=== PATIENT | female | born 1930 | race Caucasian/White ===

== ENCOUNTER → 2017-10-11 | Outpatient (CLI) | payer OTHER ==
[~2017-10-11] MED LIST: ADULT LOW DOSE81 MG PO; ALBUTEROL INHAL17 GM INH; ALBUTEROL2.5 MG/31 INH; ATIVAN0.5 MG PO; AVELOX 400 MG400 MG PO; BROVANA15 MCG/2 M; BUDESONIDE0.5 MG/2 M INH; DIGOXIN250 MCG PO; ELIQUIS2.5 MG PO; FELDENE20 MG PO; MSL20MG/ML SUBLING; MULTIVITAMINS PO; PREDNISONE 10 M10 MG PO; PREDNISONE 5 MG5 MG; PRILOSEC40 MG PO; SPIRIVA INH; VIOS AEROSOL D1 EACH; VITAMIN D400 UNI1 PO
== END ==
LOC: RAD 14:57
DX: J44.1 Chronic obstructive pulmonary disease with (acute) exacerbation (principal); M47.895 Other spondylosis, thoracolumbar region; M41.85 Other forms of scoliosis, thoracolumbar region; I70.0 Atherosclerosis of aorta; J98.11 Atelectasis

== ENCOUNTER → 2017-10-24 | Outpatient (CLI) | payer OTHER | LOC: RAD 15:21 | DX: R06.00 Dyspnea, unspecified (principal) ==

== ENCOUNTER 2018-02-07 13:53 | Inpatient (IN) | payer OTHER ==
[~2018-02-07] VITALS: Ht 149.9 cm; Wt 44.9 kg
--- NOTE | ~2018-02-07 | 2DMMODE ---
[facility] [address] [place] [address] 2 D/M-MODE ECHOCARDIOGRAM Name: SHARPSHELLY RENETTA Room #: 364-P [facility] IN .R.#: [id number] Admission: 02/07/18 Attend Phys: Khari Weber MD Discharge: Date of : [birth year] Date of Service: 02/11/18 1209 Report #: [id number] THIS REPORT FOR: //name// APPROVED REPORT Study performed: 02/11/2018 10:31:34 EXAM: Comprehensive 2D, Doppler, and color-flow Echocardiogram Patient Location: Bedside Room #: 364 Status: routine BSA: 1.37 HR: 104 bpm BP: 127/99 mmHg Rhythm: Tachy and irregular Other Information Study Quality: Good/patient sitting up in bed on BipAP. Indications Short of breath. Tachycardia. COPD exacerbation. 2D Dimensions RVDd: 34.12 mm LVEF(%): 34.90 (>50%) IVSd: 10.55 (7-11mm) LVOT Diam: 20.15 (18-24mm) LVDd: 46.32 mm PWd: 10.27 (7-11mm) LVDs: 38.62 (25-40mm) Aortic Root: 31.34 mm Zurita's LVEF: 34.90 % Volumes Left Atrial Volume (Systole) Single Plane 4CH: 74.22 mL Single Plane 2CH: 72.22 mL LA ESV Index: 58.00 mL/m2 Aortic Valve AoV Peak Omega.: 2.41 m/s AO Peak Gr.: 23.43 mmHg LVOT Max P.78 mmHg AO Mean Gr.: 13.45 mmHg AO V2 Mean: 1.74 m/s LVOT Max V: 0.66 m/s AO V2 VTI: 41.70 cm DARIO Vmax: 0.[address] [facility] [address] [place] [address] 2 D/M-MODE ECHOCARDIOGRAM Name: SHELLY SHARP [facility] Room #: 364-P [facility] IN ..#: [id number] Admission: 02/07/18 Attend Phys: Khari Weber MD Discharge: Date of : [birth year] Date of Service: 02/11/18 1209 Report #: [id number] Mitral Valve MV Decel. Time: 128.82 ms MV E Max Omega.: 1.79 m/s MV PHT: 36.48 ms MVA (PHT): 6.03 cm2 Pulmonary Valve PV Peak Omega.: 0.49 m/s PV Peak Gr.: 0.97 mmHg Tricuspid Valve TR Peak Omega.: 3.58 m/s RAP Estimate: 15.00 mmHg TR Peak Gr.: 51.24 mmHg PA Pressure: 66.00 mmHg Left Ventricle The left ventricle is normal size. There is normal left ventricular wall thickness. Left ventricular systolic function is severely decreased. LVEF is 25-30%. This study is not technically sufficient to allow evaluation of the LV diastolic function. Right Ventricle The right ventricle is normal size. Right ventricle is mildly hypokinetic. Atria Left atrium is severely dilated. The right atrium size is normal. Aortic Valve Aortic valve leaflets are heavily thickened and calcified. Mild to moderate aortic regurgitation. Moderate to severe aortic stenosis. Aortic valve area by continuity equation is 0.9cm2 Mitral Valve Mitral valve leaflets are moderately thickened. Moderate to severe mitral annular calcification. Severe mitral regurgitation. Mild mitral stenosis. Tricuspid Valve The tricuspid valve is normal in structure. Moderate tricuspid regurgitation. Estimated PAP is 65-70mmHg. Pulmonic Valve The pulmonary valve is normal in structure. Trace pulmonic regurgitation. [facility] [address] [place] [address] 2 D/M-MODE ECHOCARDIOGRAM Name: SHARPSHELLY Room #: 364-P [facility] IN .R.#: [id number] Admission: 02/07/18 Attend Phys: Khari Weber MD Discharge: Date of : [birth year] Date of Service: 02/11/18 1209 Report #: [id number] Great Vessels The aortic root is normal in size. The ascending aorta is normal in size. IVC is dilated and collapses <50% with inspiration. Pericardium There is no pericardial effusion. Small right pleural effusion noted. <Conclusion> The left ventricle is normal size. LVEF is 25-30%. Left ventricular systolic function is severely decreased. The right ventricle is normal size. Left atrium is severely dilated. Aortic valve leaflets are heavily thickened and calcified. Mild to moderate aortic regurgitation. Moderate to severe aortic stenosis. Aortic valve area by continuity equation is 0.9cm2 Mitral valve leaflets are moderately thickened. Moderate to severe mitral annular calcification. Severe mitral regurgitation. Mild mitral stenosis. The tricuspid valve is normal in structure. Moderate tricuspid regurgitation. Estimated PAP is 65-70mmHg. The pulmonary valve is normal in structure. Trace pulmonic regurgitation. There is no pericardial effusion. Small right pleural effusion noted. <ELECTRONICALLY SIGNED> By: Maurice Alarcon MD 02/11/18 1209 08 08 Maurice Alarcon MD /INF
--- NOTE | ~2018-02-07 | EKG ---
[address] [place] [address] ELECTROCARDIOGRAM REPORT Name: SHELLY SHARP Room #: 364-P ADM IN M.R.#: [id number] Admission: 02/07/18 Attend Phys: Khari Weber MD Discharge: Date of : [birth year] Report #: [id number] THIS REPORT FOR: //name// [facility] Test Date: 2018-02-11 Test Time: 09:25:41 Pat Name: SHELLY SHARP Department: Room: 364 P Gender: F [employer]: Shefali SANDS : 1930 Requested By: Ra Oro Order Number: [id number] MD: Stevenson Cortez Measurements Intervals [place] Rate: 111 P: PA: QRS: 58 QRSD: 86 T: 225 QT: 326 QTc: 443 Interpretive Statements Atrial fibrillation LVH with secondary repolarization abnormality Compared to ECG 06/19/2010 22:10:16 Atrial fibrillation has replaced sinus rhythm ST and T wave abnormality is now present Electronically Signed On 02-11-2018 16:25:11 CDT by Stevenson Cortez [email or web address] <ELECTRONICALLY SIGNED> By: Stevenson Cortez MD, [facility] 02/11/18 1625 0925 0925 Stevenson Cortez MD, [facility] /EPI
[~2018-02-07 13:53] MED LIST changes: -ATIVAN0.5 MG PO; -DIGOXIN250 MCG PO; -ELIQUIS2.5 MG PO; -MSL20MG/ML SUBLING; -PREDNISONE 10 M10 MG PO
[2018-02-07 14:35] VITALS: BP 174/90
[2018-02-07 17:53] LABS: BE(vivo) -1.7 mmol/L (-2 to +3); HCO3 22.2 mmol/L (22.0-26.0); PCO2 34.7 mmHg (35.0-45.0); PO2 102.8 mmHg (80.0-100.0); pH 7.423 (7.360-7.450); sO2 97.9 % (92.0-98.0)
[2018-02-07 20:20] VITALS: BP 184/85
[2018-02-07 23:50] VITALS: BP 159/57
[2018-02-08 00:25] LABS: URINE BILIRUBIN NEGATIVE (Negative); URINE BLOOD NEGATIVE (Negative); URINE CLARITY CLEAR; URINE COLOR YELLOW; URINE GLUCOSE-RANDOM* NEGATIVE (Negative); URINE KETONES NEGATIVE (Negative); URINE LEUKOCYTES-REFLEX NEGATIVE (Negative); URINE NITRITE-REFLEX NEGATIVE (Negative); URINE PROTEIN (DIPSTICK) NEGATIVE (Negative); URINE SPECIFIC GRAVITY <= 1.005 (1.005-1.035); URINE UROBILINOGEN 0.2 E.U./dl (0.2-1.0)
[2018-02-08 00:32] LABS: ABSOLUTE NEUTROPHILS 6.4 thou/uL (1.4-8.2); BASOPHILS 0.2 % (0.0-2.0); HEMATOCRIT 35.7 % (37.0-47.0); LYMPHOCYTES 6.3 % (24.0-44.0); MCHC 33.6 g/dL (28.0-37.0); MCV 92.2 fL (80.0-100.0); MONOCYTES 0.9 % (1.0-8.0); PLATELET COUNT 259 thou/uL (150-400); POLYS 92.6 % (36.0-66.0); RBC 3.87 mil/uL (4.20-5.00); RDW 13.6 % (10.5-14.5); WBC 6.9 thou/uL (4.0-11.0)
[2018-02-08 00:46] LABS: CALCIUM 9.1 mg/dL (8.5-10.1); CREATININE 0.9 mg/dL (0.6-1.0); POTASSIUM 4.6 mmol/L (3.5-5.1)
[2018-02-08 00:53] LABS: ALBUMIN 3.4 g/dL (3.4-5.0); TOTAL BILIRUBIN 0.5 mg/dL (<0.1-1.0); TOTAL PROTEIN 6.6 g/dL (6.4-8.2)
[2018-02-08 03:30] VITALS: BP 163/85
[2018-02-08 05:23] LABS: HEMATOCRIT 34.2 % (37.0-47.0); HEMOGLOBIN 11.5 gm/dL (12.0-15.0); MCHC 33.6 g/dL (28.0-37.0); MCV 92.4 fL (80.0-100.0); RBC 3.71 mil/uL (4.20-5.00); RDW 13.5 % (10.5-14.5); WBC 3.6 thou/uL (4.0-11.0)
[2018-02-08 05:37] LABS: CALCIUM 8.9 mg/dL (8.5-10.1); CREATININE 0.8 mg/dL (0.6-1.0); POTASSIUM 4.7 mmol/L (3.5-5.1)
[2018-02-08 07:58] VITALS: BP 155/89
[2018-02-08 11:44] VITALS: BP 154/81
[2018-02-08 16:37] VITALS: BP 164/124
[2018-02-08 17:10] LABS: GLYCOHEMOGLOBIN (HGB A1C) 5.1 % (4.8-5.6)
[2018-02-08 19:48] VITALS: BP 143/80
[2018-02-09 04:15] VITALS: BP 127/81
[2018-02-09 05:09] LABS: ABSOLUTE NEUTROPHILS 7.8 thou/uL (1.4-8.2); HEMATOCRIT 31.1 % (37.0-47.0); HEMOGLOBIN 10.7 gm/dL (12.0-15.0); LYMPHOCYTES 6.3 % (24.0-44.0); MCH 31.5 pg (26.0-34.0); MCHC 34.2 g/dL (28.0-37.0); MCV 92.1 fL (80.0-100.0); PLATELET COUNT 232 thou/uL (150-400); POLYS 88.7 % (36.0-66.0); RBC 3.38 mil/uL (4.20-5.00); RDW 13.9 % (10.5-14.5); WBC 8.7 thou/uL (4.0-11.0)
[2018-02-09 05:13] LABS: CALCIUM 8.5 mg/dL (8.5-10.1); CREATININE 0.8 mg/dL (0.6-1.0); POTASSIUM 4.6 mmol/L (3.5-5.1)
[2018-02-09 07:42] VITALS: BP 157/73
[2018-02-09 16:07] VITALS: BP 157/59
[2018-02-09 19:45] VITALS: BP 174/91
[2018-02-09 23:13] VITALS: BP 153/78
[2018-02-10 04:10] VITALS: BP 138/67
[2018-02-10 06:13] LABS: HEMATOCRIT 29.3 % (37.0-47.0); MCH 31.5 pg (26.0-34.0); MCHC 34.1 g/dL (28.0-37.0); MCV 92.4 fL (80.0-100.0); RBC 3.17 mil/uL (4.20-5.00); RDW 13.6 % (10.5-14.5); WBC 6.2 thou/uL (4.0-11.0)
[2018-02-10 06:41] LABS: ALBUMIN 2.8 g/dL (3.4-5.0); CALCIUM 8.1 mg/dL (8.5-10.1); CREATININE 0.8 mg/dL (0.6-1.0); POTASSIUM 4.5 mmol/L (3.5-5.1); TOTAL BILIRUBIN 0.5 mg/dL (<0.1-1.0); TOTAL PROTEIN 5.5 g/dL (6.4-8.2)
[2018-02-10 07:03] LABS: FOLIC ACID 16.4 ng/mL (8.6-58.9); TSH 0.561 uIU/mL (0.358-3.740)
[2018-02-10 08:30] VITALS: BP 150/83
[2018-02-10 17:11] VITALS: BP 138/84
[2018-02-10 20:14] VITALS: BP 181/85
[2018-02-10 23:23] LABS: BE(vivo) -3.5 mmol/L (-2 to +3); HCO3 22.4 mmol/L (22.0-26.0); PCO2 43.8 mmHg (35.0-45.0); PO2 103.1 mmHg (80.0-100.0); pH 7.327 (7.360-7.450); sO2 97.3 % (92.0-98.0)
[2018-02-11 04:30] VITALS: BP 124/95
[2018-02-11 08:28] VITALS: BP 127/99
[2018-02-11 09:14] LABS: HEMOGLOBIN 11.8 gm/dL (12.0-15.0); MCH 31.1 pg (26.0-34.0); MCHC 33.7 g/dL (28.0-37.0); MCV 92.3 fL (80.0-100.0); RBC 3.79 mil/uL (4.20-5.00); RDW 13.6 % (10.5-14.5); WBC 10.9 thou/uL (4.0-11.0)
[2018-02-11 09:22] LABS: CALCIUM 8.5 mg/dL (8.5-10.1); CREATININE 0.9 mg/dL (0.6-1.0); POTASSIUM 4.3 mmol/L (3.5-5.1)
[2018-02-11 09:52] LABS: HCO3 20.9 mmol/L (22.0-26.0); PCO2 37.7 mmHg (35.0-45.0); PO2 101.8 mmHg (80.0-100.0); pH 7.362 (7.360-7.450); sO2 97.5 % (92.0-98.0)
[2018-02-11 11:56] VITALS: BP 122/75
[2018-02-11 15:42] VITALS: BP 121/79
[2018-02-11 19:22] VITALS: BP 77/52
[2018-02-11 20:09] VITALS: BP 116/74
[2018-02-12 04:07] VITALS: BP 137/93
[2018-02-12 05:21] LABS: ABSOLUTE NEUTROPHILS 5.3 thou/uL (1.4-8.2); BASOPHILS 0.1 % (0.0-2.0); HEMATOCRIT 34.7 % (37.0-47.0); HEMOGLOBIN 11.8 gm/dL (12.0-15.0); LYMPHOCYTES 7.4 % (24.0-44.0); MCV 91.1 fL (80.0-100.0); MONOCYTES 5.9 % (1.0-8.0); PLATELET COUNT 217 thou/uL (150-400); POLYS 86.6 % (36.0-66.0); RBC 3.81 mil/uL (4.20-5.00); RDW 13.5 % (10.5-14.5); WBC 6.1 thou/uL (4.0-11.0)
[2018-02-12 05:38] LABS: CALCIUM 8.4 mg/dL (8.5-10.1); POTASSIUM 3.9 mmol/L (3.5-5.1)
[2018-02-12 08:09] VITALS: BP 122/75
[2018-02-12 15:46] VITALS: BP 109/67
[2018-02-12 19:12] VITALS: BP 163/85
[2018-02-13] VITALS: BP 113/65
[2018-02-13 04:45] VITALS: BP 104/58
[2018-02-13 08:27] VITALS: BP 195/75
[2018-02-13 13:49] VITALS: BP 98/70
[2018-02-13 20:36] VITALS: BP 98/67
[2018-02-14 03:57] VITALS: BP 99/67
[2018-02-14 08:13] VITALS: BP 77/54
[2018-02-14 08:15] VITALS: BP 121/82
[2018-02-14] MEDS ORDERED: DIGOXIN250 MCG PO (11:07)
[2018-02-14] MEDS ORDERED: MSL20MG/ML SUBLING (11:07)
[2018-02-14] MEDS ORDERED: ELIQUIS2.5 MG PO (11:07)
[2018-02-14] MEDS ORDERED: ATIVAN0.5 MG PO (11:10)
[2018-02-14] MEDS ORDERED: PREDNISONE 10 M10 MG PO (11:15)
[2018-02-14 13:23] VITALS: BP 121/82
[2018-02-14 13:28] VITALS: BP 121/82
== END 2018-02-14 17:09 | disposition hospice, home (50) | DRG 291 ==
LOC: 3W 13:53
PROVIDERS: Hospitalist; Internal Medicine Pulmonary Disease
PROC: 5A09357 Assistance with Respiratory Ventilation, Less than 24 Consecutive Hours, Continuous Positive Airway Pressure (ICD-10-PCS; principal; 2018-02-10)
PROC: 5A09357 Assistance with Respiratory Ventilation, Less than 24 Consecutive Hours, Continuous Positive Airway Pressure (ICD-10-PCS; 2018-02-11)
PROC: 5A09357 Assistance with Respiratory Ventilation, Less than 24 Consecutive Hours, Continuous Positive Airway Pressure (ICD-10-PCS; 2018-02-12)
DX: I11.0 Hypertensive heart disease with heart failure (principal); J96.21 Acute and chronic respiratory failure with hypoxia; J44.1 Chronic obstructive pulmonary disease with (acute) exacerbation; E44.0 Moderate protein-calorie malnutrition; I50.21 Acute systolic (congestive) heart failure; I42.9 Cardiomyopathy, unspecified; Z66 Do not resuscitate; M16.0 Bilateral primary osteoarthritis of hip; K80.20 Calculus of gallbladder without cholecystitis without obstruction; K21.9 Gastro-esophageal reflux disease without esophagitis; K59.00 Constipation, unspecified; M62.84 Sarcopenia; R26.9 Unspecified abnormalities of gait and mobility; E55.9 Vitamin D deficiency, unspecified; I08.0 Rheumatic disorders of both mitral and aortic valves; I48.91 Unspecified atrial fibrillation; I27.20 Pulmonary hypertension, unspecified; Z90.49 Acquired absence of other specified parts of digestive tract; Z99.81 Dependence on supplemental oxygen; Z85.118 Personal history of other malignant neoplasm of bronchus and lung; Z68.20 Body mass index [BMI] 20.0-20.9, adult; Z79.82 Long term (current) use of aspirin; Z79.899 Other long term (current) drug therapy; Z90.710 Acquired absence of both cervix and uterus; Z90.722 Acquired absence of ovaries, bilateral; Z87.891 Personal history of nicotine dependence; Z88.2 Allergy status to sulfonamides
CPT/HCPCS: 10879